=== PATIENT | male | born 1955 | race Caucasian/White ===

== ENCOUNTER → 2017-04-26 | Outpatient (CLI) | payer BC ==
[~2017-04-26] MED LIST: AUGMENTIN PO; DIOVAN PO; GLUCOVANCE 2.5/1 TA1 PO; IBUPROFEN PO; LEXAPRO PO; LIPITOR PO; PHENERGAN PO; VICODIN PO
--- NOTE | ~2017-04-26 | US11 ---
[facility] A Service of [facility] RADIOLOGY TEXT RESULTS PATIENT: TITUS MONTELONGO LOCATION: [facility] #: [id number] : 55 UNIT #: [id number] AGE: [address]: Osman Win MD SEX: M ORDER DR: [id number] [facility] [address] [place], [place] [address] [id number] O MR#: [id number] Acc #: [id number] NAME: TITUS MONTELONGO. : 1955 SEX: M STUDY DATE/TIME: 04/26/2017 10:38 UNIT: [facility] ROOM: STUDY DESCRIPTION: US Aorta Duplex Complete Attending Physician: Osman Win Jr., M.D. Referring Physician: Osman Win Jr., M.D. Ordering Physician: Osman Win Jr., M.D. Primary Care Physician: Osman Win Jr., M.D. MEDICAL IMAGING REPORT This report is preliminary unless electronic signature is present EXAM Aortic ultrasound with Doppler imaging. DATE 04/26/2017 HISTORY Abdominal aortic calcification seen on x-ray. Patient has no current complaints. COMPARISON Lumbar spine radiographs 04/07/2017. Abdominal ultrasound 07/05/2009. FINDINGS Portions of the abdominal aorta are obscured by bowel gas. The proximal aorta measures 2.6 x 2.7 cm, mid abdominal aorta 3.0 x 2.8 cm, distal abdominal aorta 2.4 x 1.9 cm (measurements submitted in the axial (transverse) plane. There is mild calcific atherosclerosis seen within the mid to distal abdominal aorta. No high-grade luminal stenosis or dissection is identified. Right common iliac artery measures approximately 1.4 cm and left common iliac artery measures 1.7 cm. Color and spectral Doppler flow was documented within the abdominal aorta. IMPRESSION 1. 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 2. Mild calcific atherosclerosis. [facility] A Service [facility] RADIOLOGY TEXT RESULTS PATIENT: TITUS MONTELONGO [facility] #[facility] [id number] : 55 UNIT #: [id number] AGE: [address]: Osman Win MD SEX: M ORDER DR: Dictated by... Merary Pringle M.D. THIS IS AN ELECTRONICALLY VERIFIED REPORT Merary Pringle M.D. at 04/27/2017 8:56 AM JARED/dima TD: 04/27/2017 00:39 JOB #: [id number] MEDICAL IMAGING REPORT Page 1 of 1 COPY
== END | disposition home or self-care (01) ==
LOC: CGUS 10:13
DX: I70.0 Atherosclerosis of aorta (principal); I77.811 Abdominal aortic ectasia; I71.4 Abdominal aortic aneurysm, without rupture
CPT/HCPCS: 93978